=== PATIENT | female | born 1960 | race Two or more races ===

== ENCOUNTER 2025-03-01 12:09 | Outpatient (CLI) | payer MEDICARE, MEDICAID | END 2025-03-01 17:00 | disposition home or self-care (01) | LOC: LAB 12:09 | PROVIDERS: ATTEND Nurse Practitioner Family | DX: N39.0 Urinary tract infection, site not specified (principal) | CPT/HCPCS: 87086 ==

== ENCOUNTER 2025-04-20 10:43 | Outpatient (CLI) | payer MEDICARE, MEDICAID ==
--- NOTE | 2025-04-20 12:55 | DVH ---
US US GUIDANCE FOR NEEDLE PLACEME HISTORY: THYROID NODULES L AND R PROCEDURE: An informed consent was obtained. Limited localization ultrasound of the thyroid gland was obtained. The bilateral neck base was prepped with chlorhexidine which was allowed to dry and draped in the usual sterile fashion. Timeout was performed. The skin and soft tissues were infiltrated with 1% Xylocaine. With ultrasound guidance, multiple fine needle aspirate biopsies of the left thyroid nodule were obtained using a 25 gauge Secure-cut needle. An 18 gauge Biopince needle was used to biopsy the right thyroid nodule. The neck was cleaned and a sterile band-aid applied. The specimens were sent to pathology for analysis. No immediate complication was identified. FINDINGS: Limited ultrasound of the thyroid during the biopsy demonstrates biopsy needle within left and right nodule. IMPRESSION: Ultrasound biopsy of left and right thyroid nodules.
== END 2025-04-20 17:00 | disposition home or self-care (01) ==
LOC: US 10:43
PROVIDERS: ATTEND Nurse Practitioner Family
DX: E04.2 Nontoxic multinodular goiter (principal)
CPT/HCPCS: 60100; 76536; 76942; 88173

== ENCOUNTER 2025-05-23 14:26 | Outpatient (CLI) | payer MEDICARE, MEDICAID | END 2025-05-23 17:00 | disposition home or self-care (01) | LOC: LAB 14:26 | PROVIDERS: ATTEND Nurse Practitioner Family | DX: N39.0 Urinary tract infection, site not specified (principal) | CPT/HCPCS: 87086 ==